=== PATIENT | male | born 1945 | race Caucasian/White ===

== ENCOUNTER → 2019-05-11 | Outpatient (CLI) | payer MEDICARE, OTHER ==
[~2019-05-11] MED LIST: NIASPAN
[2019-05-11 16:07] LABS: Albumin 4.3 g/dL (3.4-5.0); Calcium 9.3 mg/dL (8.5-10.1); Potassium 4.5 mmol/L (3.5-5.1)
[2019-05-11 16:13] LABS: BUN/Creatinine Ratio 19.6; Bilirubin, Total 0.6 mg/dL (0.2-1.0); Total Protein 7.7 g/dL (6.4-8.2)
[2019-05-11 16:15] LABS: Free T4 (Free Thyroxine) 0.69 ng/dL (0.89-1.76)
[2019-05-11 16:39] LABS: Basophils # (auto) 0 uL; Basophils % (auto) 0.9 % (0.0-2.0); Eosinophils # (auto) 0.1 uL; Eosinophils % (auto) 2.7 % (0.0-7.0); Hemoglobin 15.1 g/dL (13.5-17.5); Lymphocytes # (auto) 0.6 uL; Lymphocytes % (auto) 16.3 % (10.0-50.0); Mean Corpuscular Hgb Conc. 34.4 g/dL (32.0-36.0); Mean Corpuscular Volume 90.3 fL (80.0-100.0); Monocytes # (auto) 0.3 uL; Monocytes % (auto) 8.9 % (0.0-12.0); Neutrophils # (auto) 2.8 uL; Neutrophils % (auto) 71.2 % (37.0-80.0); Nucleated Red Blood Cells % 0.1 %; Platelet Count (auto) 197 10^3/uL (140-450); Red Blood Cells 4.88 10^6/uL (4.5-5.90); Red Cell Distribution Width 13.5 % (11.8-14.3); White Blood Cell 3.9 10^3/uL (4.4-10.8)
== END | disposition home or self-care (01) ==
LOC: LAB 11:47
PROVIDERS: ATTEND Internal Medicine Cardiovascular Disease
DX: E03.9 Hypothyroidism, unspecified (principal); K90.9 Intestinal malabsorption, unspecified; E29.1 Testicular hypofunction; D51.9 Vitamin B12 deficiency anemia, unspecified; N39.0 Urinary tract infection, site not specified; Z79.899 Other long term (current) drug therapy
CPT/HCPCS: 36415; 80053; 80061; 82306; 82607; 83036; 84403; 84439; 84443; 85025

== ENCOUNTER 2024-05-25 08:17 | Day surgery (SDC) | payer MEDICARE, OTHER ==
[~2024-05-25] VITALS: Ht 172.7 cm; Wt 56.7 kg
[2024-05-25] VITALS (8 sets, daily range): BP systolic 124–151; BP diastolic 63–87; PULSE 53–77; RESP 12–16; O2SAT 97–99
[2024-05-25] MEDS ORDERED: HEPARIN IN NS 1000Units/500mL 0 ML ONE (08:36)
[2024-05-25] MEDS ORDERED: LOSA-534 PO (09:03)
[2024-05-25] MEDS ORDERED: DUTA1CAP29 PO (09:03)
[2024-05-25] MEDS ORDERED: SIMV20TA20 PO (09:03)
--- NOTE | 2024-05-25 09:16 | DVH ---
EXAM: XY CHEST XRAY 1 VIEW Indication: pain Technique: Single frontal view of the chest was obtained Comparison: None FINDINGS: Lines and Tubes: Cardiac pacemaker projects over left chest wall. Lungs: No focal consolidation. Pleura: No effusion. No pneumothorax. Cardiomediastinal contours: Unremarkable. Atherosclerotic vascular calcifications of the thoracic ao rta are noted. Bones: No acute osseous abnormality. IMPRESSION: No acute cardiopulmonary disease.
[2024-05-25] MEDS ORDERED: MIDAZOLAM HCL 2MG/2ML 2ml VIAL (1mg/ml) ONE ×2 (09:21→10:08)
[2024-05-25] MEDS ORDERED: fentaNYL CITRATE 100 MCG/2 ML VL ONE ×2 (09:21→10:08)
[2024-05-25] MEDS ORDERED: LIDOCAINE 2%HCL (LOCAL ANESTH.) INJ 20ML MDV ONE ×2 (09:21→09:59)
[2024-05-25] MEDS ORDERED: ANGIOMAX 250 MG VIAL IV ONE (09:21)
[2024-05-25] MEDS ORDERED: SODIUM CHL 0.9% 50 ML ONE (09:21)
[2024-05-25 09:27] LABS: Chloride 109 mmol/L (98-107); Potassium 4.2 mmol/L (3.5-5.1); Sodium 143 mmol/L (136-145)
[2024-05-25 09:28] LABS: Anion Gap 6 (5-15); Carbon Dioxide 28 mmol/L (20-31)
[2024-05-25 09:30] LABS: Basophils # (auto) 0 10 ^3/uL (0-0.2); Basophils % (auto) 0.6 % (0.0-2.0); Eosinophils # (auto) 0.2 10 ^3/uL (0-0.8); Eosinophils % (auto) 2.9 % (0.0-7.0); Hematocrit 40.9 % (41.0-53.0); Lymphocytes # (auto) 0.7 10 ^3/uL (0.4-5.4); Lymphocytes % (auto) 11.7 % (10.0-50.0); Mean Corpuscular Hemoglobin 31.3 pg (28.0-32.0); Mean Corpuscular Hgb Conc. 34.3 g/dL (32.0-36.0); Mean Corpuscular Volume 91.1 fL (80.0-100.0); Monocytes # (auto) 0.4 10 ^3/uL (0-1.3); Monocytes % (auto) 7.8 % (0.0-12.0); Neutrophils # (auto) 4.3 10 ^3/uL (1.6-8.6); Nucleated Red Blood Cells % 0.1 %; Platelet Count (auto) 183 10^3/uL (140-450); Red Blood Cells 4.49 10^6/uL (4.5-5.90); Red Cell Distribution Width 13.4 % (11.8-14.3); White Blood Cell 5.6 10^3/uL (4.4-10.8)
[2024-05-25 09:33] LABS: Glucose 103 mg/dL (74-106)
[2024-05-25 09:34] LABS: BUN/Creatinine Ratio 17.5 (10.0-20.0); Blood Urea Nitrogen 18 mg/dL (9-23)
[2024-05-25 09:42] LABS: INR 1.03 (0.9-1.15); Partial Thromboplastin Time 28.4 SEC (24.5-34.5); Prothrombin Time 10.9 sec (9.3-11.8)
[2024-05-25] MEDS ORDERED: IODIXANOL 320MG/ML 100ML BTL IV ONE (09:55)
[2024-05-25] MEDS ORDERED: NITROGLYCERIN 0.4MG/DOSE SPRAY 4.9GM ONE (10:09)
[2024-05-25] MEDS ORDERED: diphenhdrAMINE HCL 50 MG/1 ML VL ONE (10:15)
[2024-05-25] MEDS ORDERED: CLOPIDOGREL BISULFATE 75 MG TAB ONE (10:30)
[2024-05-25] MEDS ORDERED: ASPirin 325 MG TAB ONE (10:30)
--- NOTE | 2024-05-25 11:14 | DVHHP ---
ADMIT DATE: 05/25/2024 HISTORY OF PRESENT ILLNESS: The patient, 79 years old with history of hyperlipidemia, strong family history of coronary artery disease, father and brother who is a few years younger than him, had coronary artery bypass grafting. Mother of complication ischemic cardiomyopathy. Clinically, the patient is doing well at this time, however, CTA of the chest shows the patient to have a 90-95% narrowing of his proximal left anterior descending artery with calcification. Because of the presentation, the patient is now to undergo coronary angiography. He did not have any chest pain, he was physically very active. REVIEW OF SYSTEM: Unremarkable. The patient has no history of any neurological disorders such as CVA, seizure disorder, movement disorder. Does not have any GI symptomatology such as hepatitis, cirrhosis. No history of irritable bowel syndrome or inflammatory bowel disease. Denies any history of any lung disease, although recently had upper respiratory tract infection. He still continues to have chronic cough, but CT was done of his chest in [facility] shows unremarkable. During CTA, however, there was a lung lesion, but a repeat CT did not show any pathology. He has, however, has calcification throughout the aortic anatomy as well. Denies any renal insufficiency or renal failure. PHYSICAL EXAMINATION: VITAL SIGNS: Blood pressure is 142/80, pulse of 70, O2 saturation 99% on room air. HEENT: Pupils are reactive. Funduscopic exam shows no AV nicking, no exudates, no papilledema. Sclerae are anicteric. Extraocular muscles are intact. Oral mucosa moist. Posterior pharynx without any exudate. Tympanic membranes are negative. NECK: No cervical adenopathy, no supraclavicular adenopathy. Carotid pulses are 2+ symmetrical, normal upstroke and contour. No JVD appreciated. PULMONARY: Clear to auscultation in all lung lema. CARDIOVASCULAR: Regular rate without S3, without S4. PMI is not displaced. ABDOMEN: Soft, nontender, normal bowel sounds. SKIN: Unremarkable. EXTREMITIES: Unremarkable. Stool guaiac is negative. NEUROLOGIC: The patient is intact. LABORATORY DATA: EKG shows right bundle branch morphology. Otherwise, unremarkable. Echocardiogram shows preserved left ventricular ejection fraction, EF around 60% with no segmental wall motion abnormality and no evidence for any valvular pathology. Further recommendations after the patient's left heart catheterization. Simon Neil MD SA/NITA TID: [id number] RECEIPT: [id number]
--- NOTE | 2024-05-25 11:37 | DVHOP ---
DATE OF SURGERY: 05/25/2024 PROCEDURES PERFORMED: * Selective left and right coronary angiography. * Ventriculogram. * Right iliac angiography. * FFR of the left anterior descending artery, measuring 0.83. * Intravascular ultrasound of the left anterior descending artery and left main. * Angioplasty with stent placement of the proximal to ostial LAD with a 3.5 x 22 mm [place] stent. * Shockwave therapy of the left anterior descending artery ostium and proximal segment with a 3.5 x 12 mm shockwave balloon. * Conscious sedation was given to the patient. DESCRIPTION OF PROCEDURE: The patient was prepped and draped in a sterile condition. 1% Xylocaine used to anesthetize the right groin. Using a Cook needle, the right femoral artery was engaged with Seldinger technique, a 6-Cub[place] sheath into the right femoral artery. We elected to use the groin approach rather than a wrist approach because of high index of suspicion for coronary artery disease and the patients with short stature often have very short neck and therefore the ascending aorta is extremely short and would make cannulation difficult, especially in the complex intervention. Using 6-Cuban JL4 catheter and 6-Cuban JR4 catheter, selective left and right coronary angiographies were performed. Using 6-Cuban pigtail catheter, ventriculogram was done. Following the diagnostic angiography, it was switched to a 6-Cuban interventional system. Using a 6-Cuban XB 3.5 guide catheter, left main was cannulated. Using a ChoICE PT extra support wire, the left anterior descending artery was then crossed. FFR was then performed using [employer]. Then, following that, we were able to do intravascular ultrasound of the proximal segment of the left anterior descending artery and left main. Following ultrasound, we proceeded to do shockwave therapy of the proximal to ostial left anterior descending artery with a 3.5 x 12 mm shockwave balloon. Two treatments were given in the proximal segment. Following the treatment, a 3.5 x 22 mm [place] stent was then deployed across the ostial LAD into the proximal segment. It was deployed at 14 atmospheres. Following the deployment of 14 atmospheres, we re-imaged with intravascular ultrasound of the stented segment, there was complete apposition to the wall with no residual stenosis. There were no complications. The patient tolerated the procedure well. Right femoral arteriotomy site was closed using the Angio-Seal device. Total contrast used 125 mL of Optiray. Total fluoro time was 4.8 minutes. RESULTS: * Left main long, no flow restrictive lesion, even though there is mild calcification. * Left anterior descending artery had moderate calcification throughout the proximal segment of the left anterior descending artery up to the mid portion, had a 95% narrowing of the left anterior descending artery, both by fluoroscopy as well as by intravascular ultrasound. FFR gradient of 0.83, status post stent placement with less than 10% residual stenosis with a 3.5 x 22 mm [place] stent. There is mild diffuse disease throughout the coronary anatomy. * Circumflex artery is a nondominant vessel, less than 2.5 mm in size with mild diffuse disease throughout. * Ramus branch had about a 30% proximal narrowing. It is a 2.5 mm vessel. At this time, we elected not to image it nor to intervene. * Right coronary artery is large, dominant vessel with a proximal 20% narrowing, otherwise no flow restrictive lesion. * Left ventricular function was preserved with an estimated EF of 60% with an LVEDP of 14-15 mmHg with left ventricular systolic pressure of 142 with no gradient across the aortic valve. Thus, the patient underwent successful angioplasty and stent placement of the ostial left anterior descending artery with a 3.5 x 22 mm [place] stent. Simon Neil MD SA/ADDISON TID: [id number] RECEIPT: [id number]
--- NOTE | 2024-05-25 12:46 | DVHDS ---
DATE OF DISCHARGE: 05/25/2024 DISCHARGE DIAGNOSIS: The patient underwent successful angioplasty with stent placement of the ostial left anterior descending artery with a 3.5 x 22 mm [place] Y[place] stent. HOSPITAL COURSE: The patient is clinically stable at this time of discharge. The patient will be placed on dual antiplatelet therapy. He is intolerant to statins. We will discuss cholesterol modification at a later date. His blood pressure is elevated. He is always normotensive. At this time, I do not believe any intervention is required. Unless his blood pressure remains elevated, I will start him on a low dose of ARB. Heart rate is also under good control. He has sick sinus syndrome. He is status post permanent pacemaker implantation at [facility] by Dr. Binu Hough. Followup as needed. He will follow up with Dr. Conner Oliver in approximately 30 days. Simon Neil MD SA/MARCELINO/VIDYA TID: [id number] RECEIPT: [id number]
--- NOTE | 2024-05-31 08:35 | ECG ---
[facility] Test Date: 2024-05-25 Test Time: 09:08:56 Pat Name: PRETTY VIVAR Department: Room: Gender: M [employer]: SB : 1945 Requested By: THADDEUS HUMMEL Order Number: [id number] Reading MD: Lauren Rausch Measurements Intervals [place] Rate: 57 P: 70 IA: 240 QRS: 2 QRSD: 138 T: 30 QT: 444 QTc: 432 Interpretive Statements Sinus bradycardia with 1st degree AV block Right bundle branch block Electronically Signed On 05-31-2024 18:51:51 PST by Lauren Rausch Please click the below link to view image of tracing.
== END 2024-05-25 13:25 | disposition home or self-care (01) ==
LOC: EEVIPCON → CATH 08:17
PROVIDERS: ATTEND Internal Medicine Cardiovascular Disease
DX: I25.10 Atherosclerotic heart disease of native coronary artery without angina pectoris (principal); E78.5 Hyperlipidemia, unspecified; R07.9 Chest pain, unspecified; I49.5 Sick sinus syndrome; I44.0 Atrioventricular block, first degree; I45.10 Unspecified right bundle-branch block; R03.0 Elevated blood-pressure reading, without diagnosis of hypertension; Z79.02 Long term (current) use of antithrombotics/antiplatelets; Z82.49 Family history of ischemic heart disease and other diseases of the circulatory system; Z95.0 Presence of cardiac pacemaker; Z95.5 Presence of coronary angioplasty implant and graft; Z88.2 Allergy status to sulfonamides; Z79.899 Other long term (current) drug therapy; Z98.890 Other specified postprocedural states
CPT/HCPCS: 36415; 71045; 75580; 80048; 85025; 85610; 85730; 92972; 92978; 93005; 93458; C1725; C1753; C1760; C1874; C1887; C1894; C9600; J0583; J1200; J1644; J2250; J3010; J7030; Q9967; 99152